=== PATIENT | female | born 1930 | race Asian ===

== ENCOUNTER 2017-10-13 19:44 | Inpatient (IN) | payer MEDICARE, MEDICAID ==
[~2017-10-13] VITALS: Ht 152.4 cm; Wt 40.9 kg
[~2017-10-13 19:44] MED LIST: BACLOFEN10 MG ORAL; MELOXICAM7.5 MG/5 M ORAL; NKM; OMEPRAZOLE10 M1 ORAL
[2017-10-13] MEDS ORDERED: Sodium Chloride 500ML 500 ML IV ONE (19:57)
[2017-10-13] MEDS ORDERED: Ipratropium 0.02% Inh Soln 2.5ml UD HHN ONE (20:00)
[2017-10-13] MEDS ORDERED: Albuterol ud Inhalation HHN ONE (20:00)
[2017-10-13 20:17] VITALS: BP 147/74
[2017-10-13 20:36] LABS: BASOPHILS % (AUTO) 1.5 % (0.0-2.0); EOSINOPHILS % (AUTO) 1.8 % (0.0-3.0); HEMATOCRIT 31.3 % (37.0-47.0); LYMPHOCYTES % (AUTO) 12.1 % (20.0-45.0); MEAN CORPUSCULAR VOLUME 90 FL (80-99); MONOCYTES % (AUTO) 13.1 % (1.0-10.0); NEUTROPHILS % (AUTO) 71.4 % (45.0-75.0); PLATELET COUNT 183 K/UL (150-450); RED BLOOD COUNT 3.46 M/UL (4.20-5.40); RED CELL DISTRIBUTION WIDTH 12.4 % (11.6-14.8); WHITE BLOOD COUNT 5.2 K/UL (4.8-10.8)
[2017-10-13 20:51] LABS: ANION GAP 8 mmol/L (5-15); BLOOD UREA NITROGEN 24 mg/dL (7-18); CARBON DIOXIDE 25 MMOL/L (21-32); CHLORIDE 97 MMOL/L (98-107); CREATININE 0.9 MG/DL (0.55-1.30); SODIUM 129 MMOL/L (136-145)
[2017-10-13 21:04] LABS: ALANINE AMINOTRANSFERASE 56 U/L (12-78); ALBUMIN 3.2 G/DL (3.4-5.0); ALBUMIN/GLOBULIN RATIO 0.6 (1.0-2.7); ALKALINE PHOSPHATASE 124 U/L (46-116); ASPARTATE AMINO TRANSFERASE 97 U/L (15-37); CKMB < 0.5 NG/ML (0.0-3.6); CREATINE KINASE 63 U/L (26-308)
[2017-10-13] MEDS ORDERED: Piperacillin/Tazobactam 3.375 GM in NS 110 ML IVPB ONE (21:15)
[2017-10-13] MEDS ORDERED: Azithromycin 500 MG in NS 275 ML IV ONE (21:15)
[2017-10-13 21:30] VITALS: BP 139/75
[2017-10-13 21:32] LABS: APPEARANCE,URINE CLEAR; BILIRUBIN, URINE NEGATIVE (NEGATIVE); GLUCOSE, URINE (UA) NEGATIVE (NEGATIVE); KETONES,URINE NEGATIVE (NEGATIVE); LEUKOCYTE ESTERASE ,URINE NEGATIVE (NEGATIVE); NITRITE,URINE NEGATIVE (NEGATIVE); PH,URINE 6 (4.5-8.0); PROTEIN,URINE 1+ (NEGATIVE); UROBILINOGEN,URINE 1 MG/DL (0.0-1.0)
[2017-10-13 21:35] LABS: COLOR,URINE YELLOW
--- NOTE | 2017-10-13 22:33 | Emergency Room Report ---
History of Present Illness General Chief Complaint: Chest Pain Source: Family Member Present Illness HPI 87-year-old female presents ED for evaluation. Patient brought in by EMS. Complaining of chest pressure and nausea for several days. Notes pain with deep breaths. Patient is Yoruba speaking. Grandson at bedside. States that patient had similar episode some years ago and noted to have a pneumonia. Denies cough. Denies fevers or chills. Denies sick contacts or recent travel. No other aggravating relieving factors. Denies any other associated symptoms Allergies: Coded Allergies: No Known Allergies (Unverified , 07/08/15) Patient History Past Medical History: none Past Surgical History: none Pertinent Family History: none Social History: Denies: smoking, alcohol use, drug use Last Menstrual Period: n/a Now: No Immunizations: UTD Reviewed Nursing Documentation: PMH: Agreed; PSxH: Agreed Nursing Documentation-PMH Past Medical History: No History, Except For Hx COPD: No - PNA, Bronchitis Review of Systems All Other Systems: negative except mentioned in HPI Physical Exam Vital Signs Date Time Temp Pulse Resp B/P (MAP) Pulse Ox O2 Delivery O2 Flow Rate FiO2 10/13/17 19:40 97.7 74 16 156/79 97 Room Air 97.7 Sp02 EP Interpretation: reviewed, normal General Appearance: no apparent distress, alert, GCS 15, non-toxic Head: normocephalic, atraumatic Eyes: bilateral eye normal inspection, bilateral eye PERRL ENT: hearing grossly normal, normal pharynx, no angioedema, normal voice Neck: full range of motion, supple/symm/no masses Respiratory: chest non-tender, decreased breath sounds, crackles, speaking full sentences Cardiovascular #1: regular rate, rhythm, no edema Cardiovascular #2: 2+ carotid (R), 2+ carotid (L), 2+ radial (R), 2+ radial (L) , 2+ dorsalis pedis (R), 2+ dorsalis pedis (L) Gastrointestinal: normal bowel sounds, non tender, soft, non-distended, no guarding, no rebound Rectal: deferred Genitourinary: normal inspection, no CVA tenderness Musculoskeletal: back normal, gait/station normal, normal range of motion, non- tender Neurologic: alert, oriented x3, responsive, motor strength/tone normal, sensory intact, speech normal Psychiatric: judgement/insight normal, memory normal, mood/affect normal, no suicidal/homicidal ideation Reflexes: 3+ bicep (R), 3+ bicep (L), 3+ tricep (R), 3+ tricep (L), 3+ knee (R) , 3+ knee (L) Skin: normal color, no rash, warm/dry, well hydrated Lymphatic: no adenopathy Medical Decision Making Diagnostic Impression: Primary Impression: Pneumonia Qualified Codes: J15.211 - Pneumonia due to methicillin susceptible Staphylococcus aureus Additional Impression: Dyspnea ER Course Hospital Course 87 yo F presents with chest pain, nausea Differential diagnoses include: Pneumonia, CHF exacerbation, pneumothorax, ACS/ [place] Clinical course Patient placed on stretcher. On residential monitor. After initial history and physical, I ordered nebulizer treatments. I ordered labs, IV fluids, EKG, chest x-ray, blood cultures, UA. Labs - no leukocytosis, hb/hct stable, Na 129, lactae ok, trop negative EKG - NSR,no acute ischemic changes interpreted by me CXR -bilateral calcifacations, infiltrate noted given abx. given aspirin. Case discussed with Dr. Santana and he agreed to the patient to his service for further care and support I feel this is a highly complex case requiring extensive working including EKG/ Rhythm strip, Xray/CT/US, Blood/urine lab work, repeat exams while in ED, and administration of strong opiates/narcotics for pain control, admission to hospital or close patient follow up. Diagnosis - pneumonia, dyspnea Patient admitted to telemetry in serious condition Labs Test 10/13/17 20:11 10/13/17 20:40 10/13/17 21:11 White Blood Count 5.2 K/UL (4.8-10.8) Red Blood Count 3.46 M/UL (4.20-5.40) Hemoglobin 11.0 G/DL (12.0-16.0) Hematocrit 31.3 % (37.0-47.0) Mean Corpuscular Volume 90 FL (80-99) Mean Corpuscular Hemoglobin 31.8 PG (27.0-31.0) Mean Corpuscular Hemoglobin Concent 35.1 G/DL (32.0-36.0) Red Cell Distribution Width 12.4 % (11.6-14.8) Platelet Count 183 K/UL (150-450) Mean Platelet Volume 6.4 FL (6.5-10.1) Neutrophils (%) (Auto) 71.4 % (45.0-75.0) Lymphocytes (%) (Auto) 12.1 % (20.0-45.0) Monocytes (%) (Auto) 13.1 % (1.0-10.0) Eosinophils (%) (Auto) 1.8 % (0.0-3.0) Basophils (%) (Auto) 1.5 % (0.0-2.0) Sodium Level 129 MMOL/L (136-145) Potassium Level 4.0 MMOL/L (3.5-5.1) Chloride Level 97 MMOL/L (98-107) Carbon Dioxide Level 25 MMOL/L (21-32) Anion Gap 8 mmol/L (5-15) Blood Urea Nitrogen 24 mg/dL (7-18) Creatinine 0.9 MG/DL (0.55-1.30) Estimat Glomerular Filtration Rate mL/min (>60) Glucose Level 117 MG/DL (74-106) Calcium Level 9.0 MG/DL (8.5-10.1) Total Bilirubin 1.0 MG/DL (0.2-1.0) Aspartate Amino Transf (AST/SGOT) 97 U/L (15-37) Alanine Aminotransferase (ALT/SGPT) 56 U/L (12-78) Alkaline Phosphatase 124 U/L (46-116) Total Creatine Kinase 63 U/L (26-308) Creatine Kinase MB < 0.5 NG/ML (0.0-3.6) Creatine Kinase MB Relative Index 0.7 Troponin I 0.000 ng/mL (0.000-0.056) Pro-B-Type Natriuretic Peptide 380 pg/mL (0-125) Total Protein 8.5 G/DL (6.4-8.2) Albumin 3.2 G/DL (3.4-5.0) Globulin 5.3 g/dL Albumin/Globulin Ratio 0.6 (1.0-2.7) Lactic Acid Level 1.10 mmol/L (0.4-2.0) Urine Color Yellow Urine Appearance Clear Urine pH 6 (4.5-8.0) Urine Specific [place] 1.015 (1.005-1.035) Urine Protein 1+ (NEGATIVE) Urine Glucose (UA) Negative (NEGATIVE) Urine Ketones Negative (NEGATIVE) Urine Blood 5+ (NEGATIVE) Urine Nitrite Negative (NEGATIVE) Urine Bilirubin Negative (NEGATIVE) Urine Urobilinogen 1 MG/DL (0.0-1.0) Urine Leukocyte Esterase Negative (NEGATIVE) Urine RBC 0-2 /HPF (0 - 2) Urine WBC 0-2 /HPF (0 - 2) Urine Squamous Epithelial Cells Few /LPF (NONE/OCC) Urine Bacteria Few /HPF (NONE) Urine Yeast Moderate /HPF (NONE) EKG Diagnostic Results Rate: normal Rhythm: NSR ST Segments: no acute changes ASA given to the pt in ED: Yes Rhythm Strip Diag. Results EP Interpretation: yes Rhythm: NSR, no PVC's, no ectopy Chest X-Ray Diagnostic Results Chest X-Ray Diagnostic Results : Chest X-Ray Ordered: Yes # of Views/Limited/Complete: 1 View Indication: Chest Pain EP Interpretation: Yes Interpretation: no pneumothorax, other - bilateral pulmonary calcifications , infiltrate Impression: Other - PNA Electronically Signed by: Electronically signed by Brandon Frances MD Last Vital Signs Date Time Temp Pulse Resp B/P (MAP) Pulse Ox O2 Delivery O2 Flow Rate FiO2 10/13/17 20:30 69 18 100 Room Air 10/13/17 20:17 97.7 147/74 97.7 Status: improved Disposition: ADMITTED INPATIENT Condition: Serious Referrals: NON PHYSICIAN (PCP) Brandon Frances MD Oct 13, 2017 22:33
[2017-10-13] MEDS ORDERED: ASPIR 8181 MG ORAL (22:34)
[2017-10-13 22:43] VITALS: BP 96/56
[2017-10-13 23:30] VITALS: BP 96/56
[2017-10-14] VITALS: BP 129/62
[2017-10-14] MEDS ORDERED: cefTRIAXone 1 GM in D5W 55 ML IVPB SCH ×2
[2017-10-14 04:00] VITALS: BP 95/55
[2017-10-14] MEDS: cefTRIAXone 1 GM in D5W 55 ML IVPB SCH (06:00)
[2017-10-14 07:55] VITALS: BP 100/56
[2017-10-14] MEDS: Aspirin EC 81mg tab ORAL SCH (08:48)
--- NOTE | 2017-10-14 10:59 | Diagnostic Imaging Report ---
Indication: Shortness of breath Technique: One view of the chest Comparison: 07/10/2015 Findings: Previously demonstrated left-sided pleural effusion is no longer evident. Innumerable calcified nodules are seen scattered throughout both lungs, as previously. The heart size is normal. No definite acute infiltrates. No effusions. Impression: Multiple calcified bilateral lung nodules, unchanged, presumably on the basis of old granulomatous disease No definite acute process
--- NOTE | 2017-10-14 12:20 | Consultation ---
Consult Note Consult Note asked to eval for low Na 87-year-old female presents ED for evaluation. Patient brought in by EMS. Complaining of chest pressure and nausea for several days. Notes pain with deep breaths. Patient is Kyrgyz speaking. Grandson at bedside. States that patient had similar episode some years ago and noted to have a pneumonia. Denies cough. Denies fevers or chills. Denies sick contacts or recent travel. No other aggravating relieving factors. Denies any other associated symptoms No Known Allergies (Unverified , 07/08/15) Kyrgyz speaking- Non edematous state Data reviewed Assessment/Plan HypoNatremia : Depletional vs SIADH Anemia Pneumonia Malnutrition / Cachexia Anemia ferreira- Ordered Low Na ferreira- Ordered Antibiotics ST eval 2D echo Saline IV fluid for now per orders Sebastien Ivey MD Oct 14, 2017 12:20
[2017-10-14 13:13] LABS: CHOLESTEROL 127 MG/DL (< 200); HDL CHOLESTEROL 60 MG/DL (40-60); TRIGLYCERIDES 51 MG/DL (30-150)
--- NOTE | 2017-10-14 15:11 | Diagnostic Imaging Report ---
Clinical Indication: Chest pressure and nausea for several days Technique: Spiral acquisitions obtained through the chest. No IV contrast utilized, per referring physician request. Multiplanar reconstructions generated. Total dose length product 439.62 mGycm. CTDIvol(s) 12.56 mGy. Dose reduction achieved using automated exposure control Comparison: none Findings: Small bullae are seen in the lung apices and lower lobes bilaterally. Numerous calcified nodules are seen scattered throughout the lung parenchyma. A few of the nodules are not completely calcified, and demonstrate an ill-defined soft tissue component. One such lesion at the pleural surface of the inferior right lower lobe measures approximately 4 x 4 x 2 cm. Another is seen in the posterior left upper lobe, measures 5 x 3.5 x 4.4 cm. There are numerous other similar lesions. There are also several nodules which are noncalcified. Area of reticular opacity in the right upper lobe most likely represents scarring. Scarring is seen adjacent to the upper right major fissure. No effusions. No infiltrates or congestion. The heart size is normal. No evidence of pericardial effusion. No mediastinal or hilar mass or adenopathy. Included portions of the thyroid are unremarkable. No axillary or chest wall mass or adenopathy. The bones are unremarkable. The included upper abdominal anatomy is remarkable for a few calcifications within the liver. There is at least one gallstone. The kidneys demonstrate multiple cysts bilaterally. There is suggestion of mild left hydronephrosis and proximal hydroureter. Prominent but not frankly enlarged peripancreatic lymph nodes are demonstrated Impression: Numerous bilateral diffuse calcified lung nodules, as described, consistent with old granulomatous disease There are a few noncalcified nodules. There are a few incompletely calcified masslike areas as well, as described above. The nodules most likely represent noncalcified granulomata, and the noncalcified masslike areas probably represent confluent fibrotic changes, given the evidence of extensive post inflammatory changes elsewhere. Nonetheless any of these could conceivably represent areas of neoplasm, and short interval CT follow-up should be considered as clinically indicated Other areas of postinflammatory change, as described, including. Areas of scarring in the right upper lobe and bilateral upper and lower lobe small bullae No definite acute pulmonary process. Evidence of old granulomatous disease within the liver Possible left hydronephrosis and proximal hydroureter. Further investigation with ultrasound or abdomen/pelvis CT should be considered. Note that an earlier ultrasound of 2016 did not show any hydronephrosis Cholelithiasis Bilateral renal cysts The CT scanner at [facility] is accredited by the [employer] and the scans are performed using protocols designed to limit radiation exposure to as low as reasonably achievable to attain images of sufficient resolution adequate for diagnostic evaluation.
--- NOTE | 2017-10-14 15:24 | Cardiology Report ---
APPROVED REPORT EXAM: Two-dimensional and M-mode echocardiogram with Doppler and color Doppler. INDICATION Congestive Heart Failure M-Mode DIMENSIONS IVSd0.9 (0.7-1.1cm)Left Atrium (MM)3.7 (1.6-4.0cm) LVDd1.4 (3.5-5.6cm)Aortic Root2.8 (2.0-3.7cm) PWd4.4 (0.7-1.1cm)Aortic Cusp Exc.1.8 (1.5-2.0cm) IVSs2.7 cm LVDs1.0 (2.5-4.0cm) PWs1.6 cm Normal left ventricular chamber size, systolic function and wall motion. Left ventricular ejection fraction estimated to be 60-65 %. No evidence of left ventricular hypertrophy. No evidence of pericardial effusion. All other cardiac chamber sizes are within normal limits. Focal aortic valve sclerosis with adequate cusp excursion. Thickened mitral valve leaflets with normal excursion. Mitral annulus and aortic root calcification. Pulmonic valve not well visualized. Normal tricuspid valve structure. IVC at normal size with physiologic collapse. A color flow and spectral Doppler study was performed and revealed: Mild aortic regurgitation. Trace mitral regurgitation. Mitral inflow indicates normal left ventricular diastolic function. Mild tricuspid regurgitation. Tricuspid systolic velocities suggests peak right ventricular systolic pressure of 33 mmHg. Mild pulmonic regurgitation present.
[2017-10-14 15:54] VITALS: BP 120/56
--- NOTE | 2017-10-14 16:30 | History and Physical Report ---
DATE OF ADMISSION: 10/13/2017 HISTORY OF PRESENT ILLNESS: This is a very pleasant 87-year-old Divehi only speaking female that I interviewed with the help of a Divehi-speaking gun examiner. The patient reports that she is having right-sided chest discomfort and nausea for several days. She noted pain on taking deep breath. The patient had a similar episode many years ago and said she was found to have pneumonia at that time. Presently, she denies any cough, fever, or chills. No recent contact or travel. She was seen by a local physician recently and a small mole was removed from the left upper chest. The patient denies any previous history except for degenerative arthritis. She takes pain mediations at home, unable to specify. PAST MEDICAL HISTORY: Degenerative arthritis. SURGERIES: None. HOME MEDICATIONS: None recalled except for pain medications, name unknown. REVIEW OF SYSTEMS: Denies any headaches, hematemesis, melena, or hematochezia. PHYSICAL EXAMINATION: GENERAL: Reveals elderly female. VITAL SIGNS: Blood pressure 150/70, heart rate 70, and respirations 18. She is afebrile. HEENT: Unremarkable. CHEST: Clear breath sounds bilaterally with normal heart sounds. There is small abrasion over the left anterior chest wall. ABDOMEN: Soft. EXTREMITIES: There is no edema. NEUROLOGIC: Nonfocal. LABORATORY DATA: Lab testing shows sodium 129, potassium 4, chloride 97, BUN 24, creatinine 0.9, and glucose 117. AST 97, ALT 56, and alkaline phosphatase 124. ProBNP 380. Albumin 3.2. Urinalysis is negative. CBC is unremarkable except hemoglobin 11. X-ray of the chest shows bilateral circumscribed lesions, which may represent either old granulomas or lesions within the rib cage, etiology is unclear. IMPRESSION: 1. Abnormal chest x-ray. 2. Anemia. 3. Hyponatremia. 4. Degenerative arthritis. 5. Advancing age. DISCUSSION: Admit to the hospital. I will treat her for suspected pneumonia given her symptoms, however, the evidence on x-ray is fairly weak. I will obtain a CT chest to determine the etiology of abnormality seen on chest x-ray. She will need intravenous fluids given hyponatremia. She may be mildly dehydrated. I will consult Nephrology as well given her hyponatremia. We will start intravenous Rocephin and azithromycin. We will follow as broadcast operations engineer. Eric Santana M.D. DR: WILI JOB#: [id number] CC:
[2017-10-14] MEDS: Docusate 100mg cap ORAL SCH (17:30)
[2017-10-14 20:00] VITALS: BP 131/71
[2017-10-14] MEDS ORDERED: Azithromycin 250mg tab ORAL SCH (21:00)
[2017-10-15] VITALS: BP 117/62
[2017-10-15] MEDS: cefTRIAXone 1 GM in D5W 55 ML IVPB SCH (06:03)
[2017-10-15 06:24] LABS: BASOPHILS % (AUTO) 1.3 % (0.0-2.0); EOSINOPHILS % (AUTO) 1.6 % (0.0-3.0); LYMPHOCYTES % (AUTO) 14.9 % (20.0-45.0); MEAN CORPUSCULAR VOLUME 91 FL (80-99); NEUTROPHILS % (AUTO) 68.2 % (45.0-75.0); PLATELET COUNT 191 K/UL (150-450); RED BLOOD COUNT 3.39 M/UL (4.20-5.40); RED CELL DISTRIBUTION WIDTH 12.2 % (11.6-14.8); WHITE BLOOD COUNT 5.3 K/UL (4.8-10.8)
[2017-10-15 07:27] LABS: ALANINE AMINOTRANSFERASE 36 U/L (12-78); ALBUMIN 2.5 G/DL (3.4-5.0); ALBUMIN/GLOBULIN RATIO 0.5 (1.0-2.7); ALKALINE PHOSPHATASE 112 U/L (46-116); ANION GAP 8 mmol/L (5-15); ASPARTATE AMINO TRANSFERASE 29 U/L (15-37); BILIRUBIN,TOTAL 0.5 MG/DL (0.2-1.0); BLOOD UREA NITROGEN 13 mg/dL (7-18); CALCIUM 8.8 MG/DL (8.5-10.1); CARBON DIOXIDE 24 MMOL/L (21-32); CHLORIDE 106 MMOL/L (98-107); CREATININE 0.8 MG/DL (0.55-1.30); FERRITIN 122 NG/ML (8-388); PHOSPHORUS 2.6 MG/DL (2.5-4.9); POTASSIUM 3.9 MMOL/L (3.5-5.1); SODIUM 138 MMOL/L (136-145)
--- NOTE | 2017-10-15 07:48 | Pulmonology Progress Note ---
Assessment/Plan Assessment/Plan IMPRESSION: 1. Abnormal chest x-ray. CT chest shows calcified granulomas. 2. Anemia. 3. Hyponatremia. Improved 4. Degenerative arthritis. 5. Advancing age. DISCUSSION: Will dc home Her symptoms have resolved No abx Subjective Interval Events: Feeling well Constitutional: Reports: no symptoms HEENT: Repors: no symptoms Respiratory: Reports: no symptoms Cardiovascular: Reports: no symptoms Gastrointestinal/Abdominal: Reports: no symptoms Genitourinary: Reports: no symptoms Allergies: Coded Allergies: No Known Allergies (Unverified , 07/08/15) Objective Last 24 Hour Vital Signs Date Time Temp Pulse Resp B/P (MAP) Pulse Ox O2 Delivery O2 Flow Rate FiO2 10/15/17 04:00 79 10/15/17 00:00 78 10/15/17 00:00 97.6 78 18 117/62 (80) 97 97.6 10/14/17 21:00 Room Air 10/14/17 20:00 97.7 93 18 131/71 (91) 92 97.7 10/14/17 20:00 97 10/14/17 16:00 86 10/14/17 15:54 98.4 85 18 120/56 (77) 99 98.4 10/14/17 12:00 82 10/14/17 09:23 Room Air 10/14/17 08:00 83 10/14/17 07:55 99.0 83 18 100/56 (71) 97 99.0 Intake and Output 10/14/17 10/15/17 19:00 07:00 Intake Total 1135 ml Balance 1135 ml Intake Oral 610 ml IV Total 525 ml # Voids 3 4 General Appearance: no acute distress HEENT: normocephalic Respiratory/Chest: chest wall non-tender, lungs clear Cardiovascular: normal peripheral pulses, normal rate Abdomen: normal bowel sounds Microbiology Date/Time Source Procedure Growth Status 10/13/17 20:40 Blood Blood Culture - Preliminary NO GROWTH AFTER 24 HOURS Resulted 10/13/17 20:30 Blood Blood Culture - Preliminary NO GROWTH AFTER 24 HOURS Resulted Laboratory Tests 10/14/17 12:35: Osmolality 300, Uric Acid 3.7, Triglycerides Level 51, Cholesterol Level 127, LDL Cholesterol 51, HDL Cholesterol 60, Cholesterol/HDL Ratio 2.1L, Thyroid Stimulating Hormone (TSH) 0.282L 10/14/17 15:20: Urine Osmolality 349L, Urine Random Sodium 96 10/15/17 05:15: Uric Acid 3.1, White Blood Count 5.3, Red Blood Count 3.39L, Hemoglobin 10.0L, Hematocrit 31.0L, Mean Corpuscular Volume 91, Mean Corpuscular Hemoglobin 29.6, Mean Corpuscular Hemoglobin Concent 32.4, Red Cell Distribution Width 12.2, Platelet Count 191, Mean Platelet Volume 6.7, Neutrophils (%) (Auto) 68.2, Lymphocytes (%) (Auto) 14.9L, Monocytes (%) (Auto) 14.0H, Eosinophils (%) (Auto ) 1.6, Basophils (%) (Auto) 1.3, Sodium Level 138, Potassium Level 3.9, Chloride Level 106, Carbon Dioxide Level 24, Anion Gap 8, Blood Urea Nitrogen 13 , Creatinine 0.8, Estimat Glomerular Filtration Rate , Glucose Level 100, Hemoglobin A1c 5.5, Calcium Level 8.8, Phosphorus Level 2.6, Magnesium Level 1.8 , Iron Level [Pending], Unsaturated Iron Binding [Pending], Ferritin 122, Total Bilirubin 0.5, Aspartate Amino Transf (AST/SGOT) 29, Alanine Aminotransferase ( ALT/SGPT) 36, Alkaline Phosphatase 112, C-Reactive Protein, Quantitative 6.1H, Pro-B-Type Natriuretic Peptide 1341H, Total Protein 7.6, Albumin 2.5L, Globulin 5.1, Albumin/Globulin Ratio 0.5L, Vitamin B12 Level [Pending], Folate [Pending] Current Medications Medications (Trade) Dose Ordered Sig/Krishna Route PRN Reason Start Time Stop Time Status Last Admin Dose Admin Acetaminophen (Tylenol) 650 mg Q4H PRN ORAL Mild Pain/Temp > 100.5 10/14/17 12:15 11/13/17 12:14 Aspirin (Ecotrin) 81 mg DAILY ORAL 10/14/17 09:00 11/13/17 08:59 10/14/17 08:48 Azithromycin (Zithromax) 250 mg DAILY@2100 ORAL 10/14/17 21:00 10/21/17 20:59 10/14/17 21:14 Baclofen (Lioresal) 10 mg THREE TIMES A DAY ORAL 10/14/17 09:00 11/13/17 08:59 10/14/17 17:30 Ceftriaxone Sodium 1 gm/ Dextrose 55 ml @ 110 mls/hr Q24H IVPB 10/14/17 06:00 10/21/17 05:59 10/15/17 06:03 Docusate Sodium (Colace) 100 mg TWICE A DAY ORAL 10/14/17 18:00 11/13/17 17:59 10/14/17 17:30 Pantoprazole (Protonix) 40 mg BID ORAL 10/14/17 18:00 11/14/17 08:59 10/14/17 17:30 Sodium Chloride 1,000 ml @ 75 mls/hr [id number] IV 10/14/17 10:00 11/13/17 09:59 10/14/17 23:14 Eric Santana MD Oct 15, 2017 07:48
[2017-10-15] MEDS: Aspirin EC 81mg tab ORAL SCH (08:13)
[2017-10-15] MEDS: Docusate 100mg cap ORAL SCH (08:14)
[2017-10-15 08:30] LABS: % IRON SATURATION 11 % (15-50); IRON 20 ug/dL (50-175); TOTAL IRON BINDING CAPACITY 187 ug/dL (250-450)
--- NOTE | 2017-10-15 10:26 | Nephrology Progress Note ---
Assessment/Plan Problem List: (1) Hyponatremia (2) Cachexia (3) Anemia (4) Failure to thrive Assessment HypoNatremia : Depletional vs SIADH Resolved Anemia- Low Iron Sat Pneumonia vs granuloma calcified Malnutrition / Cachexia Plan IV iron once DC NS ST eval 2D echo per orders DC planning Subjective ROS Limited/Unobtainable: No Constitutional: Reports: malaise Objective Objective Last 24 Hour Vital Signs Date Time Temp Pulse Resp B/P (MAP) Pulse Ox O2 Delivery O2 Flow Rate FiO2 10/15/17 09:00 Room Air 10/15/17 08:00 81 10/15/17 04:00 79 10/15/17 00:00 78 10/15/17 00:00 97.6 78 18 117/62 (80) 97 97.6 10/14/17 21:00 Room Air 10/14/17 20:00 97.7 93 18 131/71 (91) 92 97.7 10/14/17 20:00 97 10/14/17 16:00 86 10/14/17 15:54 98.4 85 18 120/56 (77) 99 98.4 10/14/17 12:00 82 Intake and Output 10/14/17 10/15/17 19:00 07:00 Intake Total 1135 ml Balance 1135 ml Intake Oral 610 ml IV Total 525 ml # Voids 3 4 Laboratory Tests 10/14/17 12:35: Osmolality 300, Uric Acid 3.7, Triglycerides Level 51, Cholesterol Level 127, LDL Cholesterol 51, HDL Cholesterol 60, Cholesterol/HDL Ratio 2.1L, Thyroid Stimulating Hormone (TSH) 0.282L 10/14/17 15:20: Urine Osmolality 349L, Urine Random Sodium 96 10/15/17 05:15: Uric Acid 3.1, White Blood Count 5.3, Red Blood Count 3.39L, Hemoglobin 10.0L, Hematocrit 31.0L, Mean Corpuscular Volume 91, Mean Corpuscular Hemoglobin 29.6, Mean Corpuscular Hemoglobin Concent 32.4, Red Cell Distribution Width 12.2, Platelet Count 191, Mean Platelet Volume 6.7, Neutrophils (%) (Auto) 68.2, Lymphocytes (%) (Auto) 14.9L, Monocytes (%) (Auto) 14.0H, Eosinophils (%) (Auto ) 1.6, Basophils (%) (Auto) 1.3, Sodium Level 138, Potassium Level 3.9, Chloride Level 106, Carbon Dioxide Level 24, Anion Gap 8, Blood Urea Nitrogen 13 , Creatinine 0.8, Estimat Glomerular Filtration Rate , Glucose Level 100, Hemoglobin A1c 5.5, Calcium Level 8.8, Phosphorus Level 2.6, Magnesium Level 1.8 , Iron Level 20L, Total Iron Binding Capacity 187L, Percent Iron Saturation 11L , Unsaturated Iron Binding 167, Ferritin 122, Total Bilirubin 0.5, Aspartate Amino Transf (AST/SGOT) 29, Alanine Aminotransferase (ALT/SGPT) 36, Alkaline Phosphatase 112, C-Reactive Protein, Quantitative 6.1H, Pro-B-Type Natriuretic Peptide 1341H, Total Protein 7.6, Albumin 2.5L, Globulin 5.1, Albumin/Globulin Ratio 0.5L, Vitamin B12 Level 422, Folate 12.6 Height (Feet): 5 Height (Inches): 0.00 Weight (Pounds): 90 General Appearance: no apparent distress Objective no change Sebastien Ivey MD Oct 15, 2017 10:26
[2017-10-15] MEDS ORDERED: Iron Sucrose 200 MG in NS 110 ML IV SCH (11:30)
[2017-10-15 12:00] VITALS: BP 120/67
--- NOTE | 2017-10-15 16:04 | Cardiology Report ---
APPROVED REPORT EKG Measurement Heart [id number] Normal sinus rhythm Possible Left atrial enlargement Borderline ECG
--- NOTE | 2017-10-16 13:12 | Discharge Summary ---
Discharge Summary Discharge Summary _ DATE OF ADMISSION: 10/13/2017 DATE OF DISCHARGE: 10/15/2017 CONSULTANTS: Dr. Sebastien Ivey BRIEF HOSPITAL COURSE: Patient is an 87-year-old [place] female, who reported right-sided chest discomfort and nausea for several days. She noted pain on taking deep breaths. Patient had similar episode several years ago and said she was found to have pneumonia at that time. Presently, she denied any cough, no fever, chills. There was no recent travel nor contact with ill persons. She was seen by a local physician recently an had a small mole removed in the left upper chest. She denied any previous medical history except for degenerative arthritis. On evaluation at ED, vital signs were stable, she was saturating 97% on room air. She was given nebulizer treatment. Blood work showed no leukocytosis. Troponin was negative. Sodium was 129. She had a chest x-ray that showed multiple calcified bilateral lung nodules. No definite acute process. EKG was in normal sinus rhythm. She was then admitted for evaluation of pneumonia and dyspnea. She was given IV fluids for hyponatremia. She was started empirically on Rocephin and azithromycin. She was followed by Dr. Ivey. Hyponatremia workup done. Patient had anemia and was given IV iron. Chest CT showed numerous bilateral diffuse calcified lung nodules consistent with old granulomatous disease. There were a few noncalcified nodules. Few incompletely calcified masslike areas. Nodules most likely represent noncalcified granulomata, and noncalcified masslike areas possible fibrotic changes. She was recommended short interval CT follow-up. She had an echocardiogram that showed ejection fraction of 60-65%. There was mild aortic regurgitation, trace mitral regurgitation and mild pulmonic and tricuspid regurgitation. She had a bedside swallow evaluation done. Patient is high risk for aspiration. She was recommended soft, easy chew diet with thin liquids. Stict aspiration precautions. Hyponatremia improved. She was saturating well on room air. Blood and urine culture did not isolate any growth. Patient was discharged home with home health. FINAL DIAGNOSES: Abnormal chest x-ray with calcified granuloma Hyponatremia Iron deficiency anemia Degenerative arthritis Malnutrition Advanced age DISPOSITION: Patient was discharged home with home health. DISCHARGE MEDICATIONS: Refer to Discharge Medication List. DISCHARGE INSTRUCTIONS: Follow up with PCP in a week. I have been assigned to dictate discharge summary on this account, and I was not involved in the patient's management. Conchis Zurita NP Oct 16, 2017 13:12
== END 2017-10-15 13:27 | disposition home health service (06) | DRG 196 ==
LOC: EDBD 19:44 → EMR 20:18 → 2E 20:40 → EDBEDREQ 22:02
DX: J84.10 Pulmonary fibrosis, unspecified (principal); J18.9 Pneumonia, unspecified organism; E87.1 Hypo-osmolality and hyponatremia; E46 Unspecified protein-calorie malnutrition; Z68.1 Body mass index [BMI] 19.9 or less, adult; I35.1 Nonrheumatic aortic (valve) insufficiency; I36.1 Nonrheumatic tricuspid (valve) insufficiency; D50.9 Iron deficiency anemia, unspecified; M19.90 Unspecified osteoarthritis, unspecified site
CPT/HCPCS: 36415; 71045; 71250; 80053; 80061; 81003; 82550; 82553; 82607; 82728; 82746; 83036; 83540; 83550; 83605; 83735; 83880; 83930; 83935; 84100; 84300; 84443; 84484; 84550; 85025; 86140; 87040; 87081; 87086; 93005; 93306; 94640; 94664